=== PATIENT | female | born 1965 | race African-American/Black ===

== ENCOUNTER 2016-07-10 17:44 | Emergency (ER) | payer MEDICARE, MEDICAID ==
[~2016-07-10] VITALS: Ht 170.2 cm; Wt 117.0 kg
[2016-07-10 18:20] VITALS: BP 135/69
[2016-07-10] MEDS ORDERED: KETOROLAC 60MG/2ML VIAL IM ONE (19:00)
== END 2016-07-10 20:58 | disposition home or self-care (01) ==
LOC: ER 20:52
DX: S93.601A Unspecified sprain of right foot, initial encounter (principal); I10 Essential (primary) hypertension; D64.9 Anemia, unspecified; Z98.890 Other specified postprocedural states; W01.0XXA Fall on same level from slipping, tripping and stumbling without subsequent striking against object, initial encounter; Y93.89 Activity, other specified; Y92.89 Other specified places as the place of occurrence of the external cause; Y99.8 Other external cause status
CPT/HCPCS: 73630; 96372; 99284; J1885